=== PATIENT | male | born 2000 | race Two or more races ===

== ENCOUNTER 2018-03-27 11:24 | Inpatient (IN) ==
[2018-03-28] MEDS ORDERED: Aluminum/Magnesium/Simethacone Susp 30 ML UDC PO PRN (09:08)
[2018-03-28] MEDS ORDERED: LORazepam 1 MG Tablet PO PRN (09:08)
[2018-03-28] MEDS ORDERED: Acetaminophen 325 MG Tablet PO PRN (09:12)
--- NOTE | 2018-03-28 12:29 | P.HPPSY ---
Provisional Diagnosis Admission Date: March 27, 2018 11:25 [place] I.: Adjustment disorder with mixed disturbances of emotion and conduct Competence Certification of Person's Competence To Provide Express and Informed Consent I have personally examined Mo Hillman, a person being served at [facility] on, March 28, 2018 1206. Express and informed consent means consent voluntarily given in writing, by a competent person, after sufficient explanation and disclosure of the subject matter involved to enable the person to make a knowing and willful decision without any element of force, fraud, deceit, duress, or other form of constraint or coercion. This person is 18 years of age or older, is not now known to be incompetent to consent to treatment with a guardian advocate, and does not have a health care surrogate or proxy currently making medical treatment decisions. I have found this person to be one of the following: [xxx] Competent to provide express and informed consent, as defined above, for voluntary admission to this facility and is competent to provide express and informed consent for treatment. He/she has the consistent capacity to make well reasoned, willful, and knowing decisions concerning his or her medical or mental health treatment. The person fully and consistently understands the purpose of the admission for examination/placement and is fully capable of personally exercising all rights assured [place] [] Incompetent to provide express and informed consent to voluntary admission, and this is incompetent to provide express and informed consent to treatment. The person must be transferred to involuntary status and a petition for a guardian advocate filed with the Circuit Court. [] Refusing to provide express and informed consent to voluntary admission but is competent to provide express and informed consent for treatment. The person must be discharged or transferred to involuntary status. Form shall be completed within 24 hours of a person's arrival at the receiving facility and filed in the clinical record of each person: 1. Admitted on a voluntary basis 2. Permitted to provide express and informed consent to his/her own treatment 3. Allowed to transfer from involuntary to voluntary status 4. Prior to permitting a person to consent to his or her own treatment after having been previously found incompetent to consent to treatment. History of Present Illness Capacity: Has capacity History of Present Illness: Patient is a 17-year-old [place] male comes here under a Reynoso act from [facility] dated 03/27/2018 at 1:50 AM signed by a delia that document reviewed states history of bipolar and schizophrenia. Patient seen screen that facility urine toxicology positive for opiates that appears she has had Ativan and morphine at that facility. It appears she came there initially complaining of back pain. He was noted to be somewhat upset. At that time he described stretches at his home with his mother and mother's boyfriend may need some depression and vague suicidality leading to the Reynoso act and the transfer from [place] to here in [place]. Patient seen today with floor staff. He was also Kosovan-speaking. Patient states he is moved here 2 years ago from [place] to be with his mother. At that time she had a boyfriend that he was able to tolerate. She now has a new boyfriend for the past year or so there is marked conflictual relationship there. Patient also states she is markedly desirous of returning to [place] to be with his grandmother. It appears as mother is unable to finance this until the end of this year this is led to some frustration and anger with the patient. Patient does acknowledge a history of possible bipolar disorder and some explosive temper. He is prescribed Resporal and Depakote. He says he takes it daily. He denies suicidality homicidality voices or visions. He does wish to go home he is aware of the fact that he has control his temper and his desires to fit with the reality of the money involved. At this time patient does not meet Reynoso criteria will lift Reynoso act patient to be discharged to himself we here at [place] we will attempt to arrange transportation for him back to [place] he may follow up with his primary psychiatrist or clinic in that area - Inpatient Certification I certify that the inpatient services were ordered in accordance with Medicare regulations governing the order. This includes certification that hospital inpatient services are reasonable and necessary and in the case of services not specified as inpatient-only under 42 CFR 419.22(n), that they are appropriately provided as inpatient services in accordance to with the 2-midnight benchmark under 43 CFR 412.3(e) I certify that inpatient psychiatric hospital services are medically necessary. Evaluation and treatment and/or diagnostic testing are expected to improve the patient's condition. The patient needs on a daily basis, active treatment furnished directly by or requiring the supervision of inpatient psychiatric facility personnel. Estimated Total Length of Stay (Days): 0 Plans for Post Hospital Care: Home Review of Systems All other systems reviewed negative except as stated in HPI [facility] - History History Provided By: Patient Quality Measures - Psychiatric History Psychological trauma history: Patient states some stressors with relationship to mother's boyfriends Violence risk to others in the last 6 months: Low to moderate patient does have a somewhat explosive temper though is compliant with his medication Violence risk to self in the last 6 months: Low - Substance Abuse History Drug or alcohol use in the past 12 months: Denies - Patient Strengths Patient's strengths (minimum of 2): Patient verbal cooperative able access healthcare Medications and Allergies Active Medications: Active Medications Acetaminophen (Tylenol) 650 mg PO Q4H PRN PRN Reason: Pain 1-5 or Temp >101F Al Hydrox/Mg Hydrox/Simethicone (Mag-Al Plus Susp Liq) 30 ml PO Q6H PRN PRN Reason: DYSPEPSIA Al Hydroxide/Mg Hydroxide (Milk Of Magnesia Liq) 30 ml PO DAILY PRN PRN Reason: CONSTIPATION Diphenhydramine HCl (Benadryl) 50 mg PO HS PRN PRN Reason: INSOMNIA Diphenhydramine HCl (Benadryl Inj) 50 mg IM HS PRN PRN Reason: INSOMNIA Lorazepam (Ativan) 1 mg PO Q6H PRN PRN Reason: MODERATE TO SEVERE ANXIETY Lorazepam (Ativan Inj) 1 mg IM Q6H PRN PRN Reason: MODERATE TO SEVERE ANXIETY Allergies Allergy/AdvReac Type Severity Reaction Status Date / Time No Known Allergies Allergy Verified 03/27/18 13:01 Exam Vital signs: Intake & Output 03/27/18 03/28/18 03/28/18 18:59 06:59 18:59 Weight 84.9 kg - Routine Psychiatric Exam Present: normal affect - Detailed Psychiatric Exam Mood and affect: Present: euphoric (Euthymic), labile (Slightly) Mental Status Examination Appearance: Appropriate Consciousness: Alert Orientation: x4 Motor Activity: Normal gait Speech: Unremarkable (This is well also speaking [place]ian), Hesitant (In Polish) Language: Adequate (, fairly rampant in Kosovan) Fund of Knowledge: Adequate Attention and Concentration: Adequate Memory: Unremarkable Mood: Other (Euthymic to mildly restricted and irritable) Affect: Other (Decreased range and intensity) Thought Process & Associations: Intact Thought Content: Appropriate Hallucination Type: None Delusion Type: None Suicidal Ideation: No Suicidal Plan: No Suicidal Intention: No Homicidal Ideation: No Homicidal Plan: No Homicidal Intention: No Insight: Fair Judgment: Impulsive Assessment and Plan - Assessment (1) Adjustment disorder with mixed disturbance of emotions and conduct Code(s): F43.25 - Adjustment disorder with mixed disturbance of emotions and conduct Status: Acute - Plan Plan: Estimated LOS: [] days patient does not meet Reynoso criteria at this time will lift Reynoso act patient to be discharged from [facility], no Rx by me, follow-up with his own psychiatrist in [facility] Justification for Continued Inpatient Stay: Patient to be discharged today Discharge Planning: Patient to be discharged today to return to family in [place] to follow-up psychiatrist in that area Request Healthcare Surrogate/Guardian Advocate?: No - Attending Attestation I attest that I have done the work described above
--- NOTE | 2018-03-29 00:08 | ECG ---
Date Performed: 03/28/2018 Time Performed: 07:44:54 PTAGE: 17 years EKG: Sinus rhythm WITH SHORT UT INTERVAL BORDERLINE ECG NO PREVIOUS TRACING DOCTOR: Onur Atkinson Interpretating Date/Time 03/29/2018 00:06:11
== END 2018-03-28 17:19 | disposition home or self-care (01) ==
LOC: UNDODISIN → H270 11:25
PROVIDERS: ADMIT Student in an Organized Health Care Education/Training Program; ATTEND Student in an Organized Health Care Education/Training Program